=== PATIENT | female | born 1985 | race African-American/Black ===

== ENCOUNTER 2023-01-26 21:07 | Emergency (ER) | payer OTHER ==
[2023-01-26 21:14] VITALS: RESP 18; BMI 38.2
[2023-01-27] MEDS ORDERED: KETOROLAC TROMETHAMINE 30 MG/1 ML VIAL IM ONE (00:37)
[2023-01-27] MEDS ORDERED: LIDOCAINE 5% TOPICAL PATCH TP ONE (00:37)
[2023-01-27] MEDS ORDERED: KETOROLAC TROMETHAMINE 30 MG/1 ML VIAL ONE (00:40)
[2023-01-27] MEDS ORDERED: LIDOCAINE 4% PATCH TP ONE (00:40)
[2023-01-27 06:40] VITALS: BP 117/79; PULSE 78; TEMP 98.6
[2023-01-27] MEDS ORDERED: LIDOCAINE PATCH REMOVAL MC ONE (12:00)
== END 2023-01-27 06:47 | disposition home or self-care (01) ==
LOC: JERFT 21:07 → JER 21:07
PROC: 3E0233Z Introduction of Anti-inflammatory into Muscle, Percutaneous Approach (ICD-10-PCS; principal; 2023-01-27)
DX: M25.562 Pain in left knee (principal); R07.81 Pleurodynia; M79.652 Pain in left thigh; Y04.0XXA Assault by unarmed brawl or fight, initial encounter; W19.XXXA Unspecified fall, initial encounter
CPT/HCPCS: 36415; 71250-TC; 73552-TC-LT-FY; 73562-TC-LT-FY; 84703; 99285-25